=== PATIENT | female | born 1985 | race Caucasian/White ===

== ENCOUNTER 2017-03-23 01:22 | Emergency (ER) | payer MEDICARE, BC ==
[~2017-03-23] VITALS: Ht 172.7 cm; Wt 61.2 kg
[2017-03-23 01:56] LABS: *URINE HCG, QUAL NEGATIVE (NEGATIVE)
--- NOTE | 2017-03-23 02:29 | NUR ---
Patient discharged to home in stable conditon. Written and verbal after care instructions given. Patient verbalizes understanding of instructions.
== END 2017-03-23 02:30 | disposition home or self-care (01) ==
LOC: ER 01:33
DX: M25.551 Pain in right hip (principal); G43.909 Migraine, unspecified, not intractable, without status migrainosus
CPT/HCPCS: 72170; 73502; 84703; A4663